=== PATIENT | female | born 1985 | race American Indian/Alaskan Native ===

== ENCOUNTER 2021-09-08 14:21 | Inpatient (IN) ==
[~2021-09-08 14:21] MED LIST: Ketamine HCL 50 mg/ml 10 ml VIAL (500 MG) ONE; Propofol 10 MG/ML 20 ML BTL ONE; Succinylcholine 200 mg VIAL 20 mg/ml 10 ml VIAL (200 mg) ONE
[2021-09-08] MEDS ORDERED: Propofol 10 MG/ML 20 ML BTL ONE (14:28)
[2021-09-08] MEDS ORDERED: Lactated Ringers 1000 ml BAG 1,000 ML IV ONE (14:45)
[2021-09-08] MEDS ORDERED: Buffered Lidocaine 1% SYRIN 1 ml INTRADERM ONE (14:45)
[2021-09-08] MEDS ORDERED: Lidocaine 2% PF 5 ML VIAL ONE (14:58)
[2021-09-08 15:52] LABS: Urine Appearance Clear; Urine Color Yellow; Urine Ketones Trace (Negative); Urine Protein Negative (Negative); Urine Urobilinogen 0.2 (Negative) (Negative)
[2021-09-08] MEDS ORDERED: Sodium Citrate/Citric Acid LIQ 15 ML UDC PO ONE (15:52)
[2021-09-08] MEDS ORDERED: ceFOXitin 2 GM IVPREMIX 2 GM/50 ML BAG IVPB ONE (15:52)
[2021-09-08 15:53] LABS: Urine Bilirubin Negative (Negative); Urine Glucose Negative (Negative); Urine Nitrite Negative (Negative)
[2021-09-08 15:54] LABS: Urine Bacteria Absent (Absent); Urine Red Blood Cell 1+(3-5/hpf) (Absent); Urine Squamous Epithelial Cell Present (Absent); Urine White Blood Cell Trace(0-5/hpf) (Absent)
[2021-09-08] MEDS ORDERED: ceFOXitin 2 GM IVPREMIX 2 GM/50 ML BAG ONE (16:04)
[2021-09-08 16:06] LABS: ABS Eosinophils 0.1 10^3/ul (0-0.6); ABS Lymphocytes 2.8 10^3/ul (1.0-4.8); ABS Monocytes 0.5 10^3/ul (0-0.8); ABS Neutrophils 6.5 10^3/ul (1.5-7.7); Eosinophil % 0.7 %; Hematocrit 35 % (35-47); Hemoglobin 11.6 g/dL (12.0-16.0); Lymphocyte % 27.9 %; Mean Corpuscular HGB Conc 33 g/dL (31-36); Mean Corpuscular Hemoglobin 28 pg (27-31); Mean Corpuscular Volume 85 fL (80-97); Mean Platelet Volume 10.3 fL (7.4-10.4); Platelet Count 219 10^3/uL (150-450); Red Blood Count 4.17 10^6 /uL (3.70-4.87); Red Cell Distribution Width 14 % (10-15); White Blood Count 9.9 10^3/uL (3.5-10.8)
[2021-09-08] MEDS ORDERED: OBEPIDURAL (200 ML) 0 ML EPIDURAL ONE (16:30)
[2021-09-08] MEDS ORDERED: Sodium Citrate/Citric Acid LIQ 15 ML UDC ONE (16:32)
[2021-09-08] MEDS ORDERED: Lidocaine 2% w/ EPI 1:200,000 MPF 20 ML SDV VIAL ONE (16:32)
[2021-09-08 16:37] LABS: Urine Benzodiazepine Screen None Detected (None Detect); Urine Cannabinoids Screen None Detected (None Detect); Urine Opiates Screen None Detected (None Detect)
[2021-09-08] MEDS: Lactated Ringers 1000 ml BAG 1,000 ML IV SCH ×2 (16:40→19:05)
[2021-09-08] MEDS ORDERED: fentaNYL 100 mcg/2 ml 50 MCG/ML VIAL ONE (16:49)
[2021-09-08] MEDS ORDERED: Morphine PF AMP (0.5MG/ML) 5 MG/10 ML AMP ONE (16:49)
[2021-09-08] MEDS ORDERED: Oxytocin 10 UNITS/ML 1 ML VIAL ONE ×2 (17:27→18:20)
[2021-09-08 17:55] LABS: Urine Appearance Slightly Cloudy; Urine Color Yellow; Urine Specific Gravity 1.025 (1.005-1.030); Urine Urobilinogen 0.2 (Negative) (Negative)
[2021-09-08 17:56] LABS: Urine Bilirubin Negative (Negative); Urine Blood 3+ (Large) (Negative); Urine Glucose Negative (Negative); Urine Ketones 4+ (>=160mg/dL) (Negative); Urine Nitrite Negative (Negative); Urine Protein Negative (Negative)
[2021-09-08 18:13] LABS: Urine Bacteria Absent (Absent); Urine Red Blood Cell 3+(>10/hpf) (Absent); Urine Squamous Epithelial Cell Present (Absent); Urine White Blood Cell Trace(0-5/hpf) (Absent)
[2021-09-08] MEDS ORDERED: Naloxone 0.4 mg VIAL 0.4 mg/ml 1 ml VIAL IV PRN (18:31)
[2021-09-08] MEDS ORDERED: Ondansetron 4 mg VIAL 2 MG/ML 2 ml VIAL IV PRN (18:31)
[2021-09-08] MEDS ORDERED: Glycerin ADULT 2.4 gm SUPP PR PRN (18:40)
[2021-09-08] MEDS ORDERED: Dibucaine 1% OINT 28.35 GM TUBE PR PRN (18:40)
[2021-09-08] MEDS ORDERED: Witch Hazel PAD JAR TOPICAL PRN (18:40)
[2021-09-08] MEDS ORDERED: Oxytocin in LR 20 UNITS/1,000 ML BAG IVPB SCH (19:00)
[2021-09-08] MEDS ORDERED: Lactated Ringers 1000 ml BAG 1,000 ML IV SCH (19:00)
[2021-09-09 05:51] LABS: ABS Eosinophils 0.1 10^3/ul (0-0.6); ABS Monocytes 0.6 10^3/ul (0-0.8); ABS Neutrophils 6.3 10^3/ul (1.5-7.7); Eosinophil % 0.7 %; Hematocrit 33 % (35-47); Hemoglobin 10.8 g/dL (12.0-16.0); Lymphocyte % 22.2 %; Mean Corpuscular HGB Conc 33 g/dL (31-36); Mean Corpuscular Hemoglobin 28 pg (27-31); Mean Corpuscular Volume 86 fL (80-97); Mean Platelet Volume 9.9 fL (7.4-10.4); Platelet Count 186 10^3/uL (150-450); Red Cell Distribution Width 14 % (10-15); White Blood Count 9.1 10^3/uL (3.5-10.8)
[2021-09-11 08:08] VITALS: BP 116/72
== END 2021-09-11 12:23 | disposition home or self-care (01) | DRG 788 ==
LOC: MCHOBOUT 14:21 → MCHOB 14:38
PROVIDERS: ADMIT Obstetrics & Gynecology; ATTEND Obstetrics & Gynecology